=== PATIENT | male | born 1945 | race Caucasian/White ===

== ENCOUNTER → 2016-04-06 | Outpatient (CLI) | payer OTHER, MEDICARE | LOC: RAD 14:10 | PROVIDERS: ATTEND Internal Medicine Hematology & Oncology | DX: C90.00 Multiple myeloma not having achieved remission (principal) | CPT/HCPCS: 77075 ==

== ENCOUNTER 2018-05-01 06:27 | Day surgery (SDC) | payer MEDICARE, OTHER ==
[~2018-05-01 06:27] MED LIST: KETOROLAC TROMETHAMINE 0.45% 4 DROP/0.4 ML DROPERETTE OS PRN
[2018-05-01] MEDS: TROPICAMIDE 1% OPH SOLN 3 ML OS PRN ×3 (07:06→07:21)
[2018-05-01] MEDS: CYCLOPENTOLATE 0.2%/PHENYLEPHRINE 1% OPH SOLN 2 ML OS PRN ×3 (07:06→07:21)
[2018-05-01] MEDS: TETRACAINE HCL 0.5% OPH SOLN 4 ML OS PRN ×3 (07:07→07:31)
[2018-05-01] MEDS: BESIFLOXACIN HCL 0.6% OPH SUSP 5 ML BOTTLE OS PRN ×4 (07:07→07:57)
[2018-05-01] MEDS ORDERED: LIDOCAINE 1% INJ-PF (10 MG/ML) 30 ML SDV ONE (07:10)
[2018-05-01] MEDS ORDERED: MIDAZOLAM 2 MG/2 ML INJ ONE (07:24)
[2018-05-01] MEDS ORDERED: LIDOCAINE 1%/PHENYLEPHRINE 1.5% 1 ML VIAL ONE (07:42)
[2018-05-01] MEDS: CHONDR SU A NA/HYALUR INTRAOC KIT (SURGICARE) ONE ×2 (07:43)
[2018-05-01] MEDS: EPINEPHRINE INJ/PF 1 MG/1 ML AMPULE ONE ×2 (07:43)
[2018-05-01] MEDS: DORZOLAMIDE HCL 2%/TIMOLOL MALEAT 0.5% OPH SOLN 10 ML OS PRN ×2 (07:57)
--- NOTE | 2018-05-01 20:18 | [facility] OPERATIVE REPORT E ---
[facility] Operative Report NAME: DARIAN NEFF AGE: 73Y DATE OF SURGERY: 05/01/2018 ROOM: PREOPERATIVE DIAGNOSIS: CATARACT, LEFT EYE. POSTOPERATIVE DIAGNOSIS: CATARACT, LEFT EYE. OPERATION: Cataract extraction with insertion of an IOL of the left eye. SURGEON: VIKRAM DON M.D. ANESTHESIA: Topical. PROCEDURE: After obtaining appropriate consent, the patient's left eye was prepped and draped in sterile fashion as well as the surgeon in a sterile manner and cataract surgery was started. First a paracentesis blade was used to make a side-port incision. Viscoelastic was used to inflate the anterior chamber. Next a 2.4 mm incision was made with a 2.4 mm blade, clear corneal temporally. A continuous capsulorrhexis was made using a cystotome and Utrata forceps. Following this hydrodissection was carried out to make the lens fully loose and mobile and it was rotated 90 degrees. Following this, a yjhwgc-tvc-hbnlxbn technique was used to phacoemulsify the lens with a CDE of 15.80. The remaining cortex was removed with irrigation/aspiration. Provisc was instilled into the capsular bag to inflate the bag. A SN60WF, 24.0 diopter lens was placed. The remaining viscoelastic material was removed with irrigation/aspiration. Following this, the incision was found to be watertight. Besivance was instilled into the eye and a protective shield was placed over the eye. The patient returned to the postoperative recovery in stable condition. DICTATING PHYSICIAN: VIKRAM DON M.D. [id number] [id number] PHY#: [id number] ID: [id number] JOB#: [id number] ACCT: [id number] cc:VIKRAM DON M.D. >
--- NOTE | 2018-05-01 20:22 | [facility] DISCHARGE SUMMARY E ---
[facility] Discharge Summary NAME: DARIAN NEFF AGE: 73Y ADMITTED: 05/01/2018 DISCHARGED: 05/01/2018 HOSPITAL COURSE: This is a 73-year-old male who underwent cataract extraction of the left eye. DIAGNOSIS: CATARACT, LEFT EYE. He underwent surgery because he was having difficulty seeing words on the television. DISCHARGE INSTRUCTIONS: He should be on a regular diet. No bending at his waist, no heavy lifting. He should use Besivance, PROLENSA, and Durezol at 3 p.m. and 8 p.m. and sleep with a rigid shield. I will see him for his 1 day postoperative tomorrow. DICTATING PHYSICIAN: VIKRAM DON M.D. [id number] [id number] PHY#: [id number] ID: [id number] JOB#: [id number] ACCT: [id number] cc:VIKRAM DON M.D. >
== END 2018-05-01 08:29 | disposition home or self-care (01) ==
LOC: SC 06:27
PROVIDERS: ATTEND Internal Medicine
DX: H25.813 Combined forms of age-related cataract, bilateral (principal); H57.03 Miosis; H40.033 Anatomical narrow angle, bilateral; H35.3131 Nonexudative age-related macular degeneration, bilateral, early dry stage; H52.4 Presbyopia; I10 Essential (primary) hypertension; E78.00 Pure hypercholesterolemia, unspecified; Z79.82 Long term (current) use of aspirin
CPT/HCPCS: 66984; V2632; J2250; J3490 ×2; A9270; J0171; J2370; 142

== ENCOUNTER 2018-09-27 16:53 | Emergency (ER) | payer MEDICARE ==
--- NOTE | 2018-09-27 17:32 | ER Document Report ---
ED Extremity Problem, Upper - General Chief Complaint: Arm Problem Stated Complaint: ARM PAIN Time Seen by Provider: 09/27/18 17:14 Primary Care Provider: RINA LOVING MD [Primary Care Provider] - Follow up as needed Notes: 73-year-old mal with no significant past medical history other than hypertension presents to the emergency department after being sent over from his primary care provider for abnormal lab. Patient was seen at [facility] this morning and had an elevated d-dimer of 1.52. Patient has significant ecchymosis over the anterior lateral aspect of his left forearm. Patient said he did have some swelling of his left elbow prior to that. His said that she could just see there is just weeping out as the swelling reduced in his elbow. He denies any fevers or recent illness, denies any unilateral arm swelling, denies any acute shortness of breath or chest pain, denies any unilateral or bilateral lower extremity edema. No other complaints TRAVEL OUTSIDE OF THE [place] IN LAST 30 DAYS: No - Related Data Allergies/Adverse Reactions: No Known Allergies Allergy (Verified 09/27/18 17:00) Past Medical History - Social History Smoking Status: Unknown if Ever Smoked Chew tobacco use (# tins/day): Yes - FORMER Frequency of alcohol use: None Drug Abuse: None Family History: None Patient has suicidal ideation: No Patient has homicidal ideation: No - Past Medical History Cardiac Medical History: Reports: Hx Hypertension Denies: Hx Heart Attack Pulmonary Medical History: Denies: Hx Asthma Neurological Medical History: Denies: Hx Cerebrovascular Accident, Hx Seizures Renal/ Medical History: Denies: Hx Peritoneal Dialysis GI Medical History: Reports: Hx Ulcer. Denies: Hx Hepatitis, Hx Hiatal Hernia Infectious Medical History: Denies: Hx Hepatitis Past Surgical History: Denies: Hx Open Heart Surgery, Hx Pacemaker Review of Systems - Review of Systems Constitutional: See HPI EENT: No symptoms reported Cardiovascular: See HPI Respiratory: See HPI Gastrointestinal: No symptoms reported Genitourinary: No symptoms reported Male Genitourinary: No symptoms reported Musculoskeletal: See HPI Skin: See HPI Hematologic/Lymphatic: No symptoms reported Neurological/Psychological: No symptoms reported Physical Exam - Vital signs Vitals: Temp Pulse Resp BP Pulse Ox 98.0 F 77 18 164/82 H 94 09/27/18 17:03 09/27/18 17:03 09/27/18 17:03 09/27/18 17:03 09/27/18 17:03 - Notes Notes: PHYSICAL EXAMINATION: Reviewed vital signs and charting by RN GENERAL: Alert, interacts well. No acute distress. HEAD: Normocephalic, atraumatic. EYES: Pupils equal and round. Extraocular movements intact. ENT: Oral mucosa moist, tongue midline. NECK: Full range of motion. Trachea midline. LUNGS: Clear to auscultation bilaterally, no wheezes, rales, or rhonchi. No respiratory distress. HEART: Regular rate and rhythm. No murmur ABDOMEN: soft, non-tender. No distention. Bowel sounds present EXTREMITIES: Moves all 4 extremities spontaneously. No edema, No cyanosis. PSYCH: Normal affect, normal mood. SKIN: Warm, dry, significant ecchymosis over the distal left upper extremity that covers about 75% of the area mostly on the anterior lateral aspect Course - Re-evaluation Re-evalutation: 09/27/18 17:31 Patient with an elevated d-dimer after being seen at the primary provider's office and sent over to rule out DVT. 09/27/18 18:14 Wells score -2 as patient has no risk factors at this time for DVT. He has a history of lymphoma but has been in remission for quite some time. 09/27/18 18:56 Venous Doppler negative for DVT, administrative technician commented that there is a large fluid pocket with possibly some blood flow to it and thought may be a Doppler might be in order. I then discussed the case with Dr. Arellano who examined the patient and felt that he has a hematoma that is slowly resolving. Out of an abundance of caution a left elbow x-ray was ordered to ensure there is no occult fracture. Pending x-ray patient will be stable for discharge. 09/28/18 15:05 X-ray was negative for occult fracture. Patient is stable for discharge. - Vital Signs Vital signs: Temp Pulse Resp BP Pulse Ox 98.0 F 75 15 155/80 H 93 09/27/18 20:07 09/27/18 20:07 09/27/18 20:07 09/27/18 20:07 09/27/18 20:07 Discharge - Discharge Clinical Impression: Hematoma Condition: Good Disposition: HOME, SELF-CARE Additional Instructions: You were seen in the emergency department this afternoon for what is most likely a large hematoma that was in your elbow and ended up spreading to your arm. The venous Doppler that was done was negative for DVT or anything dangerous. The bruising will last for several weeks and will take some time to resorb. You can help the process by elevating her arm while you are sitting down and relaxing. If your elbow starts to swell up, you get severe pain to the elbow, you develop acute chest pain or shortness of breath, or you have any other concerning symptoms please merely return to the emergency department. Referrals: RINA LOVING MD [Primary Care Provider] - Follow up as needed
--- NOTE | 2018-09-27 19:31 | RADIOLOGY REPORT (SQ) ---
EXAM DESCRIPTION: ELBOW LEFT OVER 2 VIEWS COMPLETED DATE/TIME: 09/27/2018 7:16 pm REASON FOR STUDY: ecchymosis, eval for fracture COMPARISON: None. NUMBER OF VIEWS: Four views. TECHNIQUE: AP, lateral, and both oblique radiographic images acquired of the left elbow. LIMITATIONS: None. FINDINGS: MINERALIZATION: Normal. BONES: Small traction osteophyte medial epicondyle. JOINT: No effusion. SOFT TISSUES: Soft tissue prominence posterior to the elbow joint. OTHER: No other significant finding. IMPRESSION: No fracture seen. TECHNICAL DOCUMENTATION: JOB ID: [id number] [id number] [email or web address]- All Rights Reserved Reading location - IP/workstation name: [email or web address]
[2018-09-27 20:10] VITALS: BP 155/80
--- NOTE | 2018-09-28 11:33 | XCELERA REPORT ---
[address] [address] Upper Extremity Venous Evaluation Name: DARIAN NEFF Age: 73 yrs Gender: Male : 1945 Patient Status: Emergency Patient Location: ER Study Date: 09/27/2018 06:03 PM Procedure: Unilateral duplex scan of the left upper extremity veins was performed, including responses to compression and other maneuvers. Reason For Study: elevated d-dimer Ordering Physician: JOEY WATERS Performed By: Aric Dumont Left Sided Venous Evaluation A large complex, non vascular mass in the left elbow area. is seen. Normal vessel filling wall to wall, compression and augmentation as well as Colour flow down to the forearm veins. Interpretation Summary Normal compression, patency, spontaneous and phasic flow of the left upper extremity veins. Incidental finding of a large non vascular mass, possible hematoma or abscess. : JOEY WATERS > Alexsander Kenny
== END 2018-09-27 20:10 | disposition home or self-care (01) ==
LOC: ER 16:53
DX: S50.02XA Contusion of left elbow, initial encounter (principal); M25.522 Pain in left elbow; X58.XXXA Exposure to other specified factors, initial encounter; F17.299 Nicotine dependence, other tobacco product, with unspecified nicotine-induced disorders; I10 Essential (primary) hypertension
CPT/HCPCS: 80053; 85025; 85379; 85610; 93971; 99284